=== PATIENT | female | born 1970 | race Hispanic/Latino ===

== ENCOUNTER 2019-09-30 15:58 | Emergency (ER) | payer SELFPAY ==
[2019-09-30] MEDS ORDERED: NA CHLORIDE 0.9% 1,000 ML ONE ×2 (17:00→21:23)
[2019-09-30 17:20] LABS: Protime INR 1.61
[2019-09-30 17:21] LABS: Basophils % 0.4 % (0-1.3); Lymphocytes % 0.7 % (15.3-44.8); MPV 9.3 fL (7.6-11.3); RBC Red Blood Cell Count 2.17 M/uL (3.86-4.86)
[2019-09-30 17:24] LABS: Hematocrit 16.5 % (36.0-45.0)
--- NOTE | 2019-09-30 17:27 | RAD REPORT ---
EXAM DESCRIPTION: CT - Head Brain Wo Cont - 09/30/2019 5:01 pm CLINICAL HISTORY: Weakness;Mental status change Headache, drowsiness COMPARISON: No comparisons TECHNIQUE: All CT scans are performed using dose optimization technique as appropriate and may inclu de automated exposure control or mA/KV adjustment according to patient size. FINDINGS: No intracranial hemorrhage, hydrocephalus or extra-axial fluid collection.No areas of brai n edema or evidence of midline shift. The paranasal sinuses and mastoids are clear. The calvarium is intact. IMPRESSION: No acute intracranial abnormality.
--- NOTE | 2019-09-30 17:27 | RAD REPORT ---
EXAM DESCRIPTION: RAD - Chest Single View - 09/30/2019 4:56 pm CLINICAL HISTORY: lower extremity swelling Chest pain. COMPARISON: No comparisons FINDINGS: Portable technique limits examination quality. The lungs are underinflated but grossly clear. The heart is normal in size. No displaced fractures. IMPRESSION: No acute intrathoracic process suspected. Mildly underinflated lungs.
[2019-09-30 17:33] LABS: Creatine Phosphokinase 60 U/L (26-192); Lipase 77 U/L (73-393)
[2019-09-30 17:34] LABS: ALT/SGPT 72 U/L (12-78); AST/SGOT 195 U/L (15-37); Albumin 1.9 g/dL (3.4-5.0); Alkaline Phosphatase 445 U/L (45-117); BUN Blood Urea Nitrogen 55 mg/dL (7-18); Bicarbonate 17 mmol/L (21-32); Bilirubin Total 3.6 mg/dL (0.2-1.0); Glucose Level 123 mg/dL (74-106); Magnesium 2.1 mg/dL (1.8-2.4); NT PRO-BNP 2576 pg/mL (<125); Potassium 3.3 mmol/L (3.5-5.1); Protein, Total 5.9 g/dL (6.4-8.2); Sodium Level 127 mmol/L (136-145); Troponin (Emerg Dept Use Only) < 0.02 ng/mL (0.0-0.045)
[2019-09-30] MEDS ORDERED: POTASSIUM 25 MEQ EFFERV TAB ONE (18:28)
--- NOTE | 2019-09-30 18:59 | RAD REPORT ---
EXAM DESCRIPTION: CT - Chest Abd Pelvis Wo Con - 09/30/2019 6:43 pm CLINICAL HISTORY: Chest and abdomen pain. elevated liver enzymes COMPARISON: No comparisons TECHNIQUE: A limited noncontrast study was performed. All CT scans are performed using dose optimization technique as appropriate and may include automated exposure control or mA/KV adjustment according to patient size. FINDINGS: Enlarged lymph nodes are seen along the base of the neck, larger on the left measuring 14 mm in short axis. These lymph nodes demonstrate mild mass effect on the left lobe of the thyroid glan d.Enlarged lymph nodes are seen as well in both axillary regions as well as in the mediastinum, for e xample pretracheal lymphadenopathy measures 18 mm in short axis. Left axillary lymph node measures 15 -16 mm in short axis, sub-carinal lymph node measuring 17 mm in short axis.No pulmonary nodule infilt rate seen.No pleural or pericardial fluid. Noncontrast imaging of the liver demonstrates no liver lesion or biliary dilatation. Cholelithiasis i s suspected. Moderate splenomegaly seen. Pancreas, adrenal glands and kidneys are unremarkable for no ncontrast imaging. Intra-abdominal lymphadenopathy is noted, including retrocrural lymphadenopathy measuring 11 mm in sh ort axis. Aortocaval lymphadenopathy is present measuring 33 mm. Lymphadenopathy cluster adjacent to the left psoas muscle in the lower abdomen measures 31 mm in short axis. Pelvic lymphadenopathy is al so present including the left pelvic sidewall adenopathy measuring 36 mm. Adenopathy anterior to the urinary bladder wall left also suspected measuring 38 mm. No bowel obstruction, free air, free fluid or abscess. The appendix is not identified as a discrete s tructure, however, no secondary findings of appendicitis are identified. Vague areas of sclerosis are seen in the spinal vertebral column, most notable measuring 10 mm in a u pper thoracic vertebral level, approximately T5. No fracture evident. IMPRESSION: Adenopathy clusters are seen at the base the neck, chest, abdomen and pelvis as detailed , along with splenomegaly, suspicious for lymphoma.
--- NOTE | 2019-09-30 19:36 | RAD REPORT ---
EXAM DESCRIPTION: US - Abdomen Exam Limited - 09/30/2019 7:27 pm CLINICAL HISTORY: ABD PAIN COMPARISON: No comparisons FINDINGS: The gallbladder demonstrates large shadowing gallstones. No pericholecystic fluid. Mild ga llbladder wall thickening. The common bile duct is normal measuring 5 mm. The liver demonstrates no findings of intrahepatic biliary dilatation. IMPRESSION: Cholelithiasis.
[2019-09-30 19:50] LABS: Anisocytosis 3+; Blood Morphology Comment NOTED (NOT SEEN); Hypochromasia 1+; Platelet Estimate ADEQ; Poikilocytosis 1+; Teardrop Cell 1+; Urine White Blood Cell Casts OK
--- NOTE | 2019-09-30 19:56 | ER ---
Nurse's Notes [facility] Name: Cori Hannah Age: 48 yrs Sex: Female : 1970 Arrival Date: 09/30/2019 Time: 16:04 Bed 5 Private MD: Diagnosis: Hepatic Failure;Edema, unspecified Presentation: 09/29 16:15 Chief complaint: Patient states: "I went to a clinic and they said to come here because aa5 my legs are so swollen". Pt c/o leg swelling since yesterday. Pt reports difficulty speaking due to "dry mouth". Sclera is yellowish. Pt states "I just feel so weak". 16:15 Acuity: REECE 2 aa5 16:16 Coronavirus screen: Proceed with normal triage. Patient denies a cough. Patient denies aa5 shortness of breath or difficulty breathing. Patient denies measured and/or subjective temperature greater than 100.4F prior to today's visit. Patient denies travel on a cruise ship or to a country the [facility] currently lists as an affected area. Patient denies contact with known and/or suspected case of COVID-19. Ebola Screen: Patient negative for fever greater than or equal to 101.5 degrees Fahrenheit, and additional compatible Ebola Virus Disease symptoms. Initial Sepsis Screen: Does the patient meet any 2 criteria? Systolic BP < 90 mmHg. Does the patient have a suspected source of infection? No. Patient's initial sepsis screen is negative. Risk Assessment: Do you want to hurt yourself or someone else? Patient reports no desire to harm self or others. Onset of symptoms was September 2019. 16:16 Method Of Arrival: Wheelchair aa5 16:30 Note Pt reports left sided weakness and tingling x 3 weeks ago. Pt denies blood in aa5 stool, denies vaginal bleeding, denies vomiting blood. Triage Assessment: 16:41 General: Appears in no apparent distress. Behavior is calm, cooperative. Pain: Denies ls4 pain. Neuro: Neuro: Level of Consciousness is awake, alert, obeys commands, Oriented to person, place, time, situation. Cardiovascular: Capillary refill < 3 seconds Patient's skin is warm and dry. Pulses are 2+ in right dorsalis pedis artery and left dorsalis pedis artery Edema is 2+ to left ankle, left foot, left toes, right ankle, right foot and right toes. Respiratory: Airway is patent Respiratory effort is even, unlabored, Respiratory pattern is regular, Breath sounds are clear. GI: Bowel sounds present X 4 quads. Derm: Skin is dry, Skin is jaundiced. DETAILER: 16:21 LMP 07/07/2019 aa5 Historical: - Allergies: 16:22 No Known Allergies; aa5 - Home Meds: 16:22 None [Active]; aa5 - PMHx: 16:22 None; aa5 - PSHx: 16:22 ; aa5 - Immunization history:: Adult Immunizations unknown. - Social history:: Smoking status: Patient denies any tobacco usage or history of. Screenin:26 Abuse screen: Denies threats or abuse. Denies injuries from another. Nutritional ls4 screening: No deficits noted. Tuberculosis screening: No symptoms or risk factors identified. Fall Risk None identified. Assessment: 19:02 Reassessment: Patient appears in no apparent distress at this time. Patient and/or ls4 family updated on plan of care and expected duration. Pain level reassessed. 20:54 Reassessment: Patient appears in no apparent distress at this time. Patient and/or jb4 family updated on plan of care and expected duration. Pain level reassessed. Reassessment: pt is awake, alert, and oriented. denies pain at this time. Respiratory: Airway is patent Respiratory effort is even, labored, shallow, Respiratory pattern is symmetrical, tachypnea Breath sounds are clear bilaterally. 21:40 Reassessment: Patient appears in no apparent distress at this time. Patient and/or jb4 family updated on plan of care and expected duration. Pain level reassessed. Pt is denying pain or shortness of breath. Blood transfusion continued. Respiratory: Airway is patent Respiratory effort is even, labored, shallow, Respiratory pattern is symmetrical, tachypnea Breath sounds are clear bilaterally. 21:45 Reassessment: Patient appears in no apparent distress at this time. No changes from jb4 previously documented assessment. Patient and/or family updated on plan of care and expected duration. Pain level reassessed. Blood Transfusion continued. 22:45 Reassessment: Patient appears in no apparent distress at this time. Patient and/or jb4 family updated on plan of care and expected duration. Pain level reassessed. Report called to TIFF Fine at [facility]. 22:45 Respiratory: Airway is patent Respiratory effort is even, labored, shallow, Respiratory jb4 pattern is symmetrical, tachypnea Breath sounds are clear bilaterally. 23:10 Reassessment: Patient appears in no apparent distress at this time. No changes from jb4 previously documented assessment. Patient and/or family updated on plan of care and expected duration. Pain level reassessed. Pt finished first unit of PRBC's Denies shortness of breath, respirations remain clear to auscultation bilaterally. Respirations remain labored, shallow, even and symmetrical. 23:40 Reassessment: Patient appears in no apparent distress at this time. Patient and/or jb4 family updated on plan of care and expected duration. Pain level reassessed. Second unit of PRBC's started. Pt denies pain, SOB, lung sounds remain CTA. Respirations continue to be tachypneic, shallow, labored, even and symmetrical. 04 00:15 Reassessment: Patient appears in no apparent distress at this time. No changes from jb4 previously documented assessment. Patient and/or family updated on plan of care and expected duration. Pain level reassessed. Report given to EMS. IV's remain patent and intact with no s/s of infiltration or phlebitis. PT transferred out of ED via EMS. Vital Signs: 09/29 16:16 BP 86 / 49; Pulse 83; Resp 14 S; Temp 98.8(TE); Pulse Ox 100% on R/A; Weight 86.18 kg aa5 (R); Height 5 ft. 4 in. (162.56 cm) (R); Pain 0/10; 19:30 BP 90 / 48; Pulse 84; Resp 29; Pulse Ox 100% on R/A; Pain 0/10; ls4 19:45 BP 98 / 87; Pulse 81; Resp 24; Pulse Ox 100% on R/A; lp1 21:00 BP 88 / 81; Pulse 89; Resp 33; Temp 97.0; Pulse Ox 100% on R/A; Pain 0/10; jb4 22:15 BP 104 / 73; Pulse 91; Resp 27; Temp 97.0(TE); Pulse Ox 100% on R/A; Pain 0/10; jb4 23:15 BP 91 / 51; Pulse 82; Resp 32; Temp 97.2(TE); Pulse Ox 100% on R/A; Pain 0/10; jb4 09/30 00:00 BP 93 / 53; Pulse 89; Resp 29 S; Temp 97.1(TE); Pulse Ox 100% on R/A; Pain 0/10; jb4 09/29 16:16 Body Mass Index 32.61 (86.18 kg, 162.56 cm) aa5 ED Course: 09/29 16:04 Patient arrived in ED. ag5 16:15 Arm band placed on. aa5 16:22 Triage completed. aa5 16:26 Santa Song, RN is Primary Nurse. ls4 16:26 Patient has correct armband on for positive identification. Bed in low position. Call ls4 light in reach. Side rails up X 1. front desk monitor on. Pulse ox on. NIBP on. 16:28 Rell Crandall PA is PHCP. cp 16:28 Addi Dukes MD is Attending Physician. cp 16:57 XRAY Chest (1 view) In Process Unspecified. EDMS 17:00 Inserted saline lock: 20 gauge in right antecubital area, using aseptic technique. aa5 17:01 CT Head Brain wo Cont In Process Unspecified. EDMS 17:30 Inserted saline lock: 18 gauge in left antecubital area, using aseptic technique. aa5 17:30 Second set of blood cultures drawn by ms. aa5 18:14 Bb Add On Sent. ls4 18:31 PHCP role handed off by Rell Crandall PA [facility] 18:31 Zhang Hammer PA is PHCP. jmm 18:43 CT Chest Abdomen Pelvis W/O Contrast In Process Unspecified. EDMS 19:33 Primary Nurse role handed off by Santa Song, RN jb4 19:33 Trev Peterson, RN is Primary Nurse. jb4 19:34 US Abdomen Limited In Process Unspecified. EDMS 19:50 Straight cath inserted, using sterile technique, 16 Fr. Specimen obtained. lp1 19:57 No provider procedures requiring assistance completed. ls4 Administered Medications: 17:21 Drug: NS 0.9% 1000 ml Route: IV; Rate: 1 bolus; Site: right antecubital; ls4 19:45 Follow up: IV Status: Completed infusion; IV Intake: 1000ml lp1 18:29 Drug: Potassium Effervescent Tablet 50 mEq Route: PO; ls4 20:14 Follow up: Response: No adverse reaction lp1 21:35 Drug: NS 0.9% 1000 ml Route: IV; Rate: 125 ml/hr; Site: left antecubital; jb4 09/30 00:15 Follow up: Response: No adverse reaction; IV Status: Infusion continued upon transfer jb4 Intake: 09/29 19:45 IV: 1000ml; Total: 1000ml. lp1 Outcome: 19:55 ER care complete, transfer ordered by MD. ball 09/30 00:26 Patient left the ED. jb4 Signatures: Dispatcher [employer] EDMS Zhang Hammer PA PA jmm Calderon, Audri RN RN aa5 Luisa Suazo RN RN lp1 Rell Crandall PA PA cp Bryson, James, RN RN jb4 Santa Song RN RN ls4 Rand Cummings ag5 Corrections: (The following items were deleted from the chart) 09/29 16:24 16:15 Chief complaint: Patient states: "I went to a clinic and they said to come here aa5 because my legs are so swollen". Pt c/o leg swelling since yesterday. Pt reports difficulty speaking due to "dry mouth". Sclera is yellowish. aa5 22:06 20:54 Respiratory: Airway is patent Respiratory effort is even, unlabored, Respiratory jb4 pattern is symmetrical, tachypnea jb4 22:06 21:40 Respiratory: Airway is patent Respiratory effort is even, unlabored, Respiratory jb4 pattern is symmetrical, tachypnea jb4 23:24 20:54 Respiratory: Airway is patent Respiratory effort is even, unlabored, Respiratory jb4 pattern is symmetrical, tachypnea jb4 23:24 21:40 Respiratory: Airway is patent Respiratory effort is unlabored, shallow, jb4 Respiratory pattern is symmetrical, tachypnea jb4 09/30 00: 04 20:54 Respiratory: Airway is patent Respiratory effort is even, unlabored, jb4 Respiratory pattern is symmetrical, tachypnea Breath sounds are clear bilaterally. jb4 09/30 00:09/29 21:40 Respiratory: Airway is patent Respiratory effort is unlabored, shallow, jb4 Respiratory pattern is symmetrical, tachypnea Breath sounds are clear bilaterally. jb4 09/30 00:23 09/29 22:45 Respiratory: Airway is patent Respiratory effort is even, unlabored, jb4 shallow, Respiratory pattern is symmetrical, tachypnea Breath sounds are clear bilaterally. jb4 09/30 00: 00:25 Response: No adverse reaction; IV Status: Infusion continued upon transfer jb4 jb4
--- NOTE | 2019-09-30 19:56 | EDPHYS ---
Physician Documentation [facility] Name: Cori Hannah Age: 48 yrs Sex: Female : 1970 Arrival Date: 09/30/2019 Time: 16:04 Bed 5 Private MD: ED Physician Addi Dukes HPI: 09/29 16:45 This 48 yrs old Female presents to ER via Wheelchair with complaints of Feet cp Swelling. 16:45 The patient presents to the emergency department with weakness of the left upper cp extremity, that is mild, left lower extremity, that is mild, times 3 weeks. 16:45 Associated signs and symptoms: Pertinent positives: altered mental status, weakness, cp Pertinent negatives: fever, headache. Patient's baseline: Neuro: alert and fully oriented, Motor: no deficits, Ambulation: walks without assistance, Speech: normal. [employer] REPA[employer]ER: 16:21 LMP 07/07/2019 aa5 Historical: - Allergies: 16:22 No Known Allergies; aa5 - Home Meds: 16:22 None [Active]; aa5 - PMHx: 16:22 None; aa5 - PSHx: 16:22 ; aa5 - Immunization history:: Adult Immunizations unknown. - Social history:: Smoking status: Patient denies any tobacco usage or history of. ROS: 16:50 Constitutional: Negative for body aches, chills, fever, poor PO intake. cp 16:50 Eyes: Negative for injury, pain, redness, and discharge. cp 16:50 ENT: Negative for drainage from ear(s), ear pain, sore throat, difficulty swallowing, difficulty handling secretions. 16:50 Cardiovascular: Positive for edema, Negative for chest pain. 16:50 Respiratory: Negative for cough, shortness of breath, wheezing. 16:50 Abdomen/GI: Negative for abdominal pain, nausea, vomiting, and diarrhea, black/tarry stool, rectal bleeding. 16:50 Skin: Negative for cellulitis, rash. 16:50 Neuro: Positive for altered mental status, tingling, weakness, Negative for headache, syncope. 16:50 All other systems are negative. Exam: 16:55 Constitutional: The patient appears in no acute distress, alert, awake, cp non-diaphoretic, well developed, well nourished, obviously ill, pale. 16:55 Head/Face: Normocephalic, atraumatic. cp 16:55 Eyes: Periorbital structures: appear normal, Pupils: equal, round, and reactive to light and accomodation, Extraocular movements: intact throughout, Conjunctiva: normal, no exudate, no injection, Lids and lashes: appear normal, bilaterally. 16:55 ENT: External ear(s): are unremarkable, Nose: is normal, Mouth: Lips: moist, Oral mucosa: pink and intact, moist, Posterior pharynx: is normal, airway is patent, no erythema, no exudate. 16:55 Neck: ROM/movement: is normal, is supple, without pain, no range of motions limitations, no meningismus, no nuchal rigidity. 16:55 Chest/axilla: Inspection: rash, of the right breast and left breast Palpation: is normal, no crepitus, no tenderness. 16:55 Cardiovascular: Rate: normal, Rhythm: regular, Edema: pedal edema, that is mild, JVD: is not appreciated. 16:55 Respiratory: the patient does not display signs of respiratory distress, Respirations: normal, no use of accessory muscles, no retractions, labored breathing, is not present, Breath sounds: are clear throughout, no decreased breath sounds, no stridor, no wheezing. 16:55 Abdomen/GI: Inspection: abdomen appears normal, Bowel sounds: active, all quadrants, Palpation: abdomen is soft and non-tender, in all quadrants, voluntary guarding, is not appreciated, involuntary guarding, is not appreciated. 16:55 Skin: Appearance: Color: jaundiced, cellulitis, is not appreciated. 16:55 Neuro: Orientation: to person, place \T\ time. Mentation: able to follow commands, slow to respond, Cerebellar function: normal finger to nose testing, heel to marcial testing is normal, Motor: moves all fours, general weakness without focal deficits, Sensation: no obvious gross deficits. 17:43 : Rectal exam: is normal, no gross blood is appreciated, stool guaiac is negative. cp 17:46 ECG was reviewed by the Attending Physician. cp Vital Signs: 16:16 BP 86 / 49; Pulse 83; Resp 14 S; Temp 98.8(TE); Pulse Ox 100% on R/A; Weight 86.18 kg aa5 (R); Height 5 ft. 4 in. (162.56 cm) (R); Pain 0/10; 19:30 BP 90 / 48; Pulse 84; Resp 29; Pulse Ox 100% on R/A; Pain 0/10; ls4 19:45 BP 98 / 87; Pulse 81; Resp 24; Pulse Ox 100% on R/A; lp1 21:00 BP 88 / 81; Pulse 89; Resp 33; Temp 97.0; Pulse Ox 100% on R/A; Pain 0/10; jb4 22:15 BP 104 / 73; Pulse 91; Resp 27; Temp 97.0(TE); Pulse Ox 100% on R/A; Pain 0/10; jb4 23:15 BP 91 / 51; Pulse 82; Resp 32; Temp 97.2(TE); Pulse Ox 100% on R/A; Pain 0/10; jb4 04 00:00 BP 93 / 53; Pulse 89; Resp 29 S; Temp 97.1(TE); Pulse Ox 100% on R/A; Pain 0/10; jb4 09/29 16:16 Body Mass Index 32.61 (86.18 kg, 162.56 cm) aa5 MDM: 09/29 16:44 Patient medically screened. cp 19:53 Data reviewed: vital signs, nurses notes. Counseling: I had a detailed discussion with lizzy the patient and/or guardian regarding: the historical points, exam findings, and any diagnostic results supporting the discharge/admit diagnosis, lab results, radiology results, the need for outpatient follow up, the need to transfer to another facility. ED course: I discussed the patient with Dr. Negro whom recommended transfer. . 09/29 16:43 Order name: Basic Metabolic Panel; Complete Time: 17:35 cp 09/29 17:36 Interpretation: Normal except: NA 127; K 3.3; CL 97; CO2 17; GLUC 123; BUN 55; CRE cp 2.00; GFR 27; CA 7.2. 09/29 16:43 Order name: CBC with Diff; Complete Time: 19:55 cp 09/29 17:45 Interpretation: Normal except: RBC 2.17; HGB 5.3; HCT 16.5; MCV 76.0; MCH 24.4; RDW cp 29.2; JESUS% 94.8; LYM% 0.7; LYMA 0.0. 09/29 16:43 Order name: LFT's; Complete Time: 17:35 cp 09/29 17:36 Interpretation: Normal except: AST 195; ALK 445; BILIT 3.6; BILID 3.0; TP 5.9; ALB 1.9; cp GLOB 4.0; A/G 0.5. 09/29 16:43 Order name: Magnesium; Complete Time: 17:35 cp 09/29 16:43 Order name: NT PRO-BNP; Complete Time: 17:35 cp 09/29 17:37 Interpretation: Abnormal: NT PRO-BNP 2576. cp 09/29 16:43 Order name: PT-INR; Complete Time: 17:35 cp 09/29 16:43 Order name: Troponin (emerg Dept Use Only); Complete Time: 17:35 cp 09/29 17:46 Interpretation: Reviewed. cp 09/29 16:43 Order name: Ptt, Activated; Complete Time: 17:35 cp 09/29 16:43 Order name: AMMONIA; Complete Time: 19:02 cp 09/29 16:48 Order name: Lactate; Complete Time: 19:02 cp 09/29 16:48 Order name: Procalcitonin; Complete Time: 18:00 cp 09/29 18:00 Interpretation: Abnormal: Procalcitonin 65.13. cp 09/29 16:48 Order name: Blood Culture Adult (2) cp 09/29 16:49 Order name: Lipase; Complete Time: 17:35 cp 09/29 16:49 Order name: CPK; Complete Time: 17:35 cp 09/29 16:43 Order name: XRAY Chest (1 view); Complete Time: 17:35 cp 09/29 16:43 Order name: EKG; Complete Time: 16:44 cp 09/29 16:43 Order name: Cardiac monitoring; Complete Time: 16:53 cp 09/29 16:43 Order name: CT Head Brain wo Cont; Complete Time: 17:35 cp 09/29 17:35 Order name: Type And Screen cp 09/29 17:51 Order name: Bb Add On eb 09/29 18:23 Order name: CT Chest Abdomen Pelvis W/O Contrast; Complete Time: 19:02 cp 09/29 18:26 Order name: Packed RBC Leukored EDMS 09/29 18:33 Order name: US Abdomen Limited; Complete Time: 19:45 [facility] 09/29 18:56 Order name: ABO/RH no charge; Complete Time: 19:02 EDMS 09/29 19:50 Order name: CBC Smear Scan; Complete Time: 19:55 EDMS 09/29 20:18 Order name: Urine Dipstick--Ancillary (enter results); Complete Time: 20:38 ar5 09/29 20:18 Order name: Urine --Ancillary (enter results); Complete Time: 20:38 ar5 09/29 16:43 Order name: EKG - Nurse/Tech; Complete Time: 19:38 cp 09/29 16:43 Order name: IV Saline Lock; Complete Time: 16:53 cp 09/29 16:43 Order name: Labs collected and sent; Complete Time: 16:53 cp 09/29 16:43 Order name: O2 Per Protocol; Complete Time: 16:53 cp 09/29 16:43 Order name: O2 Sat Monitoring; Complete Time: 16:53 cp 09/29 16:48 Order name: Urine Dipstick-Ancillary (obtain specimen); Complete Time: 20:15 cp 09/29 16:48 Order name: Urine Test (obtain specimen); Complete Time: 20:15 cp EC:46 Rate is 79 beats/min. Rhythm is regular. OH interval is normal. QRS interval is normal. cp QT interval is prolonged at 420 msec. Interpreted by me. Reviewed by me. Administered Medications: 17:21 Drug: NS 0.9% 1000 ml Route: IV; Rate: 1 bolus; Site: right antecubital; ls4 19:45 Follow up: IV Status: Completed infusion; IV Intake: 1000ml lp1 18:29 Drug: Potassium Effervescent Tablet 50 mEq Route: PO; ls4 20:14 Follow up: Response: No adverse reaction lp1 21:35 Drug: NS 0.9% 1000 ml Route: IV; Rate: 125 ml/hr; Site: left antecubital; jb4 09/30 00:15 Follow up: Response: No adverse reaction; IV Status: Infusion continued upon transfer jb4 Disposition: 09:41 Co-signature as Attending Physician, Addi Dukes MD I agree with the assessment and kdr plan of care. Disposition: 09/30/19 19:55 Transfer ordered to [facility]. Diagnosis are Hepatic Failure, Edema, unspecified. - Reason for transfer: Higher level of care. - Accepting physician is [facility]. - Condition is Stable. - Problem is new. - Symptoms are unchanged. Signatures: Dispatcher [employer] Addi Zimmerman MD MD kdr Mickail, Joel, PA PA jmm Calderon, Audri, RN RN aa5 Rell Crandall PA PA cp Bryson, James, RN RN jb4 Santa Song RN RN ls4 Luisa Suazo RN lp1 Corrections: (The following items were deleted from the chart) 09/29 17:36 17:36 Normal except: NA 127; K 3.3; CL 97; CO2 17; GLUC 123; BUN 55; CRE 2.00; GFR 27. cp cp 17:45 17:36 Normal except: RBC 2.17; HGB 5.3; HCT 16.5; MCV 76.0; MCH 24.4; RDW 29.2; JESUS% cp 94.8; LYM% 0.7. cp 09/30 00:26 09/29 19:55 09/30/2019 19:55 Transfer ordered to [facility]. jb4 Diagnosis is Hepatic Failure; Edema, unspecified. Reason for transfer: Higher level of care. Accepting physician is [facility]. Condition is Stable. Problem is new. Symptoms are unchanged. lizzy
[2019-09-30 20:30] LABS: Urine Blood TRACE (NEG); Urine Glucose NEGATIVE (NEG); Urine Protein 1+ (NEG)
[2019-09-30] MEDS ORDERED: NA CHLORIDE 0.9% 250 ML ONE (20:40)
[2019-09-30] MEDS ORDERED: NA CHLORIDE 0.9% 100 ML IV ONE (23:29)
[2019-10-01 01:07] VITALS: O2SAT 100
[2019-10-01 01:22] VITALS: BP 93/53; TEMP 97.1
--- NOTE | 2019-10-01 07:36 | EKG ---
Test Date: 2019-09-30 Test Time: 17:28:46 [employer]marine Advisory Team Watch Officer: JEANNIE MEASUREMENT RESULTS: Intervals: Rate: 79 [place]: 128 QRSD: 96 QT: 420 QTc: 481 [place]: P: 69 [place]: 128 QRS: 35 T: 37 INTERPRETIVE STATEMENTS: Normal sinus rhythm Prolonged QT Abnormal ECG No previous ECG available for comparison Electronically Signed On 10-01-19 07:34:44 CDT by Darren Weston
== END 2019-10-01 00:26 | disposition short-term general hospital (02) ==
LOC: ER 15:58
PROC: 30233N1 Transfusion of Nonautologous Red Blood Cells into Peripheral Vein, Percutaneous Approach (ICD-10-PCS; principal; 2019-10-01)
DX: K72.90 Hepatic failure, unspecified without coma (principal); R41.82 Altered mental status, unspecified
CPT/HCPCS: 36415; 51702; 70450; 71045; 71250; 74176; 76705; 80048; 80076; 81003; 81025; 82140; 82550; 83605; 83690; 83735; 83880; 84145; 84484; 85025; 85610; 85730; 86850; 86900; 86901; 87040; 93005; 96360; 96361; 99284; J7030; P9016